=== PATIENT | male | born 1985 | race Caucasian/White ===

== ENCOUNTER 2022-01-31 03:04 | Inpatient (IN) | payer OTHER ==
[2022-01-31] MEDS ORDERED: ACETAMINOPHEN 1000 MG/100 ML BAG IVPB ONE (03:54)
[2022-01-31] MEDS ORDERED: ACETAMINOPHEN INJECTION 100 ML IVPB ONE (04:13)
[2022-01-31] MEDS ORDERED: LACTATED RINGERS SOLUTION 1000 ML INFUS.BAG IV ONE (04:14)
[2022-01-31 04:34] LABS: BASO % 0.4 % (0-2.0); EOS % 0.7 % (0-4.5); HEMATOCRIT 40.6 % (35.4-49); LYMPH % 16.9 % (8-40); MCH 30.1 pg (25.7-33.7); MCHC 34.6 g/dl (32.0-35.9); MEAN PLT VOLUME 8.6 fl (7.5-11.1); PLATELET COUNT 205 10^3/uL (134-434); RBC 4.66 M/mm3 (4.00-5.60); RDW 12.5 % (11.9-15.9)
[2022-01-31 04:43] LABS: BLOOD UREA NITROGEN 21.1 mg/dL (7-18)
[2022-01-31 04:46] LABS: CREATININE 1.1 mg/dL (0.55-1.3)
[2022-01-31 04:47] LABS: TOT PROT 7.1 g/dl (6.4-8.2)
[2022-01-31] MEDS ORDERED: SODIUM CHLORIDE 0.9% 500 ML INFUS.BAG IV ONE (09:55)
[2022-01-31] MEDS ORDERED: PANTOPRAZOLE SODIUM 80 MG in SODIUM CHLORIDE 100 ML IVPB SCH (10:15)
[2022-01-31 10:53] LABS: ALBUMIN 4.2 g/dl (3.4-5.0); CALCIUM 9.5 mg/dL (8.5-10.1)
[2022-01-31 10:55] LABS: BLOOD UREA NITROGEN 16.1 mg/dL (7-18)
[2022-01-31 10:57] LABS: CREATININE 0.9 mg/dL (0.55-1.3)
[2022-01-31 10:58] LABS: TOT PROT 7.4 g/dl (6.4-8.2)
[2022-01-31 13:14] VITALS: BMI 28.3
[2022-01-31] MEDS ORDERED: DEXTROSE 5%-NORMAL SALINE 1,000 ML IV SCH (16:00)
[2022-01-31] MEDS ORDERED: TEMAZEPAM 15 MG CAPSULE PO PRN (20:40)
[2022-01-31] MEDS: PANTOPRAZOLE SODIUM 160 MG in SODIUM CHLORIDE 290 ML IVPB SCH (22:37)
[2022-02-01 00:58] VITALS: RESP 18
[2022-02-01] MEDS: PANTOPRAZOLE SODIUM 160 MG in SODIUM CHLORIDE 290 ML IVPB SCH (06:11)
[2022-02-01 08:55] LABS: BASO % 0.8 % (0-2.0); EOS % 1.5 % (0-4.5); HEMATOCRIT 43.2 % (35.4-49); HEMOGLOBIN 14.4 GM/dL (11.7-16.9); LYMPH % 28.6 % (8-40); MCHC 33.2 g/dl (32.0-35.9); MEAN CELL VOLUME 87.1 fl (80-96); MEAN PLT VOLUME 8.8 fl (7.5-11.1); MONO % 6.5 % (3.8-10.2); NEUT % 62.6 % (42.8-82.8); PLATELET COUNT 234 10^3/uL (134-434); RBC 4.96 M/mm3 (4.00-5.60); RDW 12.9 % (11.9-15.9); WHITE BLOOD COUNT 6.1 K/mm3 (4.0-10.0)
[2022-02-01 09:28] LABS: BLOOD UREA NITROGEN 13.8 mg/dL (7-18); CALCIUM 9.3 mg/dL (8.5-10.1)
[2022-02-01 09:32] LABS: TOT PROT 7.1 g/dl (6.4-8.2)
[2022-02-01] MEDS ORDERED: PANTOPRAZOLE 40 MG TABLET PO SCH (10:00)
[2022-02-01 14:10] VITALS: BP 115/72; PULSE 75; TEMP 98.4
== END 2022-02-01 18:28 | disposition home or self-care (01) | DRG 446 ==
LOC: JER 03:04 → JERBED 10:01 → J6S 12:51
PROVIDERS: ADMIT Internal Medicine; ATTEND Internal Medicine
DX: K82.8 Other specified diseases of gallbladder (principal); R10.9 Unspecified abdominal pain; R74.01 Elevation of levels of liver transaminase levels; K76.0 Fatty (change of) liver, not elsewhere classified
CPT/HCPCS: 36415; 71046-TC-FY; 74177-TC; 74181-TC; 76705-TC; 80053; 80061; 80307; 83036; 83516; 83690; 84100; 84484; 85025; 86038; 86705; 86708; 86709; 86803; 87086; 87340; 87517; 93005; 93010; 99285-25; C9803-CS; Q9967; U0003; U0005

== ENCOUNTER 2022-02-01 23:59 | Inpatient (IN) | payer OTHER ==
[2022-02-02] MEDS ORDERED: LACTATED RINGERS SOLUTION 1000 ML INFUS.BAG IV ONE (00:18)
[2022-02-02] MEDS ORDERED: morphine CARPU-JECT 4 MG/1 ML DISP.SYRIN IVPUSH ONE (00:18)
[2022-02-02] MEDS ORDERED: morphine SULFATE 4 MG/ML VIAL ONE (00:40)
[2022-02-02 01:28] LABS: BASO % 0.3 % (0-2.0); EOS % 0.9 % (0-4.5); HEMATOCRIT 40.3 % (35.4-49); HEMOGLOBIN 13.8 GM/dL (11.7-16.9); LYMPH % 23.5 % (8-40); MCH 29.7 pg (25.7-33.7); MCHC 34.2 g/dl (32.0-35.9); MEAN CELL VOLUME 86.8 fl (80-96); MEAN PLT VOLUME 8.5 fl (7.5-11.1); MONO % 5.5 % (3.8-10.2); NEUT % 69.8 % (42.8-82.8); PLATELET COUNT 226 10^3/uL (134-434); RBC 4.64 M/mm3 (4.00-5.60); RDW 12.6 % (11.9-15.9); WHITE BLOOD COUNT 8.9 K/mm3 (4.0-10.0)
[2022-02-02 01:45] LABS: CALCIUM 9.2 mg/dL (8.5-10.1)
[2022-02-02 01:46] LABS: ALBUMIN 4.2 g/dl (3.4-5.0); BLOOD UREA NITROGEN 22.2 mg/dL (7-18)
[2022-02-02 01:49] LABS: CREATININE 1.1 mg/dL (0.55-1.3)
[2022-02-02 01:51] LABS: BILIRUBIN,TOTAL 1.1 mg/dL (0.2-1); TOT PROT 7.3 g/dl (6.4-8.2)
[2022-02-02] MEDS ORDERED: SODIUM CHLORIDE 1,000 ML IV SCH ×2 (08:30→17:48)
[2022-02-02] MEDS: PANTOPRAZOLE SODIUM 40 MG VIAL IVPUSH SCH (09:23)
[2022-02-02] MEDS ORDERED: ACETAMINOPHEN 1000 MG/100 ML BAG IVPB PRN (10:53)
[2022-02-02 11:50] VITALS: BMI 28.6
[2022-02-02] MEDS ORDERED: TEMAZEPAM 15 MG CAPSULE PO PRN (17:46)
[2022-02-02] MEDS: SODIUM CHLORIDE 1,000 ML IV SCH (18:07)
[2022-02-03] MEDS: SODIUM CHLORIDE 1,000 ML IV SCH ×2 (02:44→16:39)
[2022-02-03] MEDS: PANTOPRAZOLE SODIUM 40 MG VIAL IVPUSH SCH (09:25)
[2022-02-03 10:16] LABS: HEMATOCRIT 41.9 % (35.4-49); HEMOGLOBIN 13.9 GM/dL (11.7-16.9); MCH 28.8 pg (25.7-33.7); MCHC 33.1 g/dl (32.0-35.9); MEAN CELL VOLUME 86.9 fl (80-96); MEAN PLT VOLUME 9.2 fl (7.5-11.1); PLATELET COUNT 216 10^3/uL (134-434); RBC 4.83 M/mm3 (4.00-5.60); RDW 12.5 % (11.9-15.9); WHITE BLOOD COUNT 5.3 K/mm3 (4.0-10.0)
[2022-02-03 10:44] LABS: CALCIUM 9.3 mg/dL (8.5-10.1)
[2022-02-03 10:45] LABS: ALBUMIN 3.9 g/dl (3.4-5.0); BLOOD UREA NITROGEN 13.1 mg/dL (7-18)
[2022-02-03 10:48] LABS: CREATININE 0.9 mg/dL (0.55-1.3)
[2022-02-03 10:50] LABS: TOT PROT 7.1 g/dl (6.4-8.2)
[2022-02-04 06:01] VITALS: PULSE 66
[2022-02-04 08:59] LABS: BASO % 0.5 % (0-2.0); EOS % 1.4 % (0-4.5); HEMATOCRIT 43.7 % (35.4-49); HEMOGLOBIN 14.8 GM/dL (11.7-16.9); LYMPH % 34.7 % (8-40); MCH 29.3 pg (25.7-33.7); MCHC 33.9 g/dl (32.0-35.9); MEAN CELL VOLUME 86.3 fl (80-96); MEAN PLT VOLUME 9.1 fl (7.5-11.1); MONO % 6.1 % (3.8-10.2); NEUT % 57.3 % (42.8-82.8); PLATELET COUNT 266 10^3/uL (134-434); RBC 5.07 M/mm3 (4.00-5.60); RDW 12.3 % (11.9-15.9); WHITE BLOOD COUNT 6.9 K/mm3 (4.0-10.0)
[2022-02-04] MEDS: PANTOPRAZOLE SODIUM 40 MG VIAL IVPUSH SCH (09:27)
[2022-02-04] MEDS: SODIUM CHLORIDE 1,000 ML IV SCH (09:28)
[2022-02-04 09:32] LABS: CALCIUM 9.5 mg/dL (8.5-10.1)
[2022-02-04 09:33] LABS: ALBUMIN 4.4 g/dl (3.4-5.0); BLOOD UREA NITROGEN 13.9 mg/dL (7-18)
[2022-02-04 09:37] LABS: BILIRUBIN,TOTAL 1.1 mg/dL (0.2-1); TOT PROT 7.7 g/dl (6.4-8.2)
[2022-02-04 14:07] VITALS: BP 119/64; RESP 18; TEMP 98.6
== END 2022-02-04 18:50 | disposition home or self-care (01) | DRG 440 ==
LOC: JER 23:59 → JERBED 02-02 03:02 → J6S 02-02 08:56
PROVIDERS: ADMIT Internal Medicine; ATTEND Internal Medicine
DX: K85.90 Acute pancreatitis without necrosis or infection, unspecified (principal); R74.01 Elevation of levels of liver transaminase levels; K82.9 Disease of gallbladder, unspecified
CPT/HCPCS: 36415; 76705-TC; 78226-TC; 80053; 83690; 85025; 85027; 93005; 93010; 99285-25; A9537; C9803-CS; U0003; U0005